=== PATIENT | female | born 1955 | race Caucasian/White ===

== ENCOUNTER → 2021-01-30 | Outpatient (CLI) | payer OTHER ==
[~2021-01-30] MED LIST: ALBUTEROL2.5 MG/3 M INH; AMARYL 2MG TABLE2 MG PO; BACTROBAN CREAM15 GM TOP; BASAGLAR SC; CLARITIN 10MG T10 MG PO; CORTEF 10MG TAB10 MG PO; FIORINAL 50-321 EACH PO; FLOMAX 0.4 MG0.4 MG PO; FLOVENT DISKUS50 MCG INH; FLUTICASONE SPRAY; FLUTICASONE-SA1 EAC4 INH; HYDROXYZINE HCL10 MG PO; LANTUS SOL100 UNIT/1 SQ; LASIX20 MG PO; LATANOPROST2.5 ML OP; MELOXICAM15 MG PO; METHENAMINE HIPP1 GM PO; NEURONTIN 400400 MG PO; NEURONTIN800 MG PO; NORCO 10-325 T1 EACH PO; PRAVASTATIN SOD20 MG PO; PREMARIN CREAM VG; PROTONIX40 MG PO; PROVENTIL HFA 61 INH INH; SIMVASTATIN20 MG PO; SYMBICORT 16010.2 GM INH; TENORMIN 50 MG50 MG PO; TRULICITY0.75 MG/0. SQ; VENTOLIN HFA 66.7 GM INH; VENTOLIN/PROVE0.5 ML INH; VITAMIN B6 PO; VITAMIN D21250 MCG PO; ZANTAC300 MG PO
[2021-01-30 12:54] LABS: HEMOGLOBIN 16.1 gm/dl (12.3-15.3); RED BLOOD COUNT 4.9 M/UL (4.00-5.10); WHITE BLOOD COUNT 9.8 K/UL (4.5-11.0)
[2021-01-30 13:17] LABS: BUN/CREATININE RATIO 16 (0-10)
== END ==
LOC: OPSV2 11:17
PROVIDERS: Orthopaedic Surgery
DX: Z01.818 Encounter for other preprocedural examination (principal); G56.21 Lesion of ulnar nerve, right upper limb; R91.8 Other nonspecific abnormal finding of lung field
CPT/HCPCS: 36415; 71046; 80048; 85027; 93005

== ENCOUNTER → 2021-01-31 | Day surgery (SDC) | payer OTHER | END | disposition home or self-care (01) | LOC: OR 08:35 | PROVIDERS: Orthopaedic Surgery | PROC: 01N60ZZ Release Radial Nerve, Open Approach (ICD-10-PCS; principal; 2021-01-31 12:45) | DX: G56.23 Lesion of ulnar nerve, bilateral upper limbs (principal); I11.0 Hypertensive heart disease with heart failure; I50.9 Heart failure, unspecified; E78.5 Hyperlipidemia, unspecified; J44.9 Chronic obstructive pulmonary disease, unspecified; E11.9 Type 2 diabetes mellitus without complications; K21.9 Gastro-esophageal reflux disease without esophagitis; M19.90 Unspecified osteoarthritis, unspecified site; G47.30 Sleep apnea, unspecified; F17.210 Nicotine dependence, cigarettes, uncomplicated; E66.01 Morbid (severe) obesity due to excess calories; Z20.822 Contact with and (suspected) exposure to COVID-19; Z88.0 Allergy status to penicillin; Z88.1 Allergy status to other antibiotic agents; Z88.2 Allergy status to sulfonamides; Z79.1 Long term (current) use of non-steroidal anti-inflammatories (NSAID); Z79.899 Other long term (current) drug therapy; Z79.4 Long term (current) use of insulin; Z95.5 Presence of coronary angioplasty implant and graft | CPT/HCPCS: 82962; J1100; J2001; J2250; J2405; J2704; J3010; J7030; J7120 ==